=== PATIENT | male | born 1965 | race Caucasian/White ===

== ENCOUNTER 2017-08-12 15:13 | Emergency (ER) | payer MEDICAID, OTHER | END 2017-08-12 17:19 | disposition home or self-care (01) | LOC: E/R 15:13 | DX: J30.9 Allergic rhinitis, unspecified (principal) | CPT/HCPCS: 99283; Z7502 ==

== ENCOUNTER 2018-03-11 15:29 | Emergency (ER) | payer MEDICAID ==
[2018-03-11] MEDS: DIPHTH/TET/ACEL PERTUSS (ADULT) 0.5 ML VIAL IM* (16:32)
== END 2018-03-11 19:30 | disposition home or self-care (01) ==
LOC: FTE 19:30
DX: S06.0X0A Concussion without loss of consciousness, initial encounter (principal); S09.93XA Unspecified injury of face, initial encounter; V18.0XXA Pedal cycle driver injured in noncollision transport accident in nontraffic accident, initial encounter; Z23 Encounter for immunization
CPT/HCPCS: 70450; 70480; 70486; 90471; 99285-25